=== PATIENT | female | born 1975 | race Two or more races ===

== ENCOUNTER 2022-04-11 17:06 | Inpatient (IN) | payer MEDICAID, OTHER ==
[~2022-04-11] VITALS: Ht 162.6 cm; Wt 86.6 kg
[2022-04-11] MEDS ORDERED: ALBUTEROL SULF 2.5 MG/0.5ML(0.5%) NEB SOLN HHN ONE (17:15)
[2022-04-11] MEDS ORDERED: IPRATROPIUM BROM 0.5 MG/2.5ML INH SOL HHN ONE (17:15)
[2022-04-11] MEDS ORDERED: methylPREDNISolone SOD SUCC 125 MG/2 ML VL IV ONE (17:15)
[2022-04-11 18:44] LABS: Albumin 3.7 g/dL (3.4-5.0); Calcium 9.3 mg/dL (8.5-10.1); Potassium 3.1 mmol/L (3.5-5.1)
[2022-04-11 18:47] LABS: BUN/Creatinine Ratio 21.6; Bilirubin, Total 0.5 mg/dL (0.2-1.0); CRP High Sensitivity 0.19 mg/dL (< 0.3); Total Protein 7.3 g/dL (6.4-8.2)
[2022-04-11 18:48] LABS: Eosinophils # (auto) 0.2 10 ^3/uL (0-0.8); Hemoglobin 13.4 g/dL (12.2-16.2); Nucleated Red Blood Cells % 0.1 %
[2022-04-11 18:59] LABS: Basophils # (auto) 0.1 10 ^3/uL (0-0.2); Basophils % (auto) 0.9 % (0.0-2.0); Eosinophils % (auto) 2.1 % (0.0-7.0); Hematocrit 41.4 % (36.0-46.0); Lymphocytes # (auto) 2.4 10 ^3/uL (0.4-5.4); Lymphocytes % (auto) 31.3 % (10.0-50.0); Mean Corpuscular Hemoglobin 28.5 pg (28.0-32.0); Mean Corpuscular Hgb Conc. 32.4 g/dL (32.0-36.0); Mean Corpuscular Volume 87.8 fL (80.0-100.0); Monocytes # (auto) 0.4 10 ^3/uL (0-1.3); Monocytes % (auto) 5.3 % (0.0-12.0); Neutrophils # (auto) 4.6 10 ^3/uL (1.6-8.6); Neutrophils % (auto) 60.4 % (37.0-80.0); Red Blood Cells 4.71 10^6/uL (4.0-5.20); Red Cell Distribution Width 14.1 % (11.8-14.3); White Blood Cell 7.5 10^3/uL (4.4-10.8)
[2022-04-11] MEDS ORDERED: POTASSIUM CHL 20MEQ/100ML 100 ML IV ONE (19:45)
[2022-04-11 23:02] LABS: Urine Bacteria FEW /hpf (None Seen); Urine Blood Negative /uL (Negative); Urine Mucus FEW (None Seen); Urine Specific Gravity 1.027 (1.001-1.035); Urine WBC 3 /hpf (0 - 5)
[2022-04-12] MEDS ORDERED: ACETAMINOPHEN 325 MG TAB PO PRN (02:30)
[2022-04-12] MEDS ORDERED: NITROGLYCERIN 0.4 MG SL TAB SL PRN (02:30)
[2022-04-12] MEDS ORDERED: TEMAZEPAM 15 MG CAP PO PRN (02:30)
[2022-04-12] MEDS ORDERED: POTASSIUM CHL 20 Meq TABLET PO ONE (02:30)
[2022-04-12] MEDS ORDERED: ALBUTEROL SULF 2.5 MG/0.5ML(0.5%) NEB SOLN NEB PRN (02:30)
[2022-04-12] MEDS ORDERED: MORPHINE SULFATE INJ 2 MG/ml SYRG IV PRN (02:30)
[2022-04-12 02:59] VITALS: BP 97/67
[2022-04-12] MEDS: ENOXAPARIN SOD 40 MG/0.4 ML SYRINGE SC SCH (09:58)
[2022-04-12] MEDS: cefTRIAXone 1GM/50ML D5W 50 ML IV SCH (09:58)
[2022-04-12] MEDS: MULTIPLE VITAMIN TAB PO SCH (09:59)
[2022-04-12] MEDS: PANTOPRAZOLE 40 MG TAB PO SCH (09:59)
[2022-04-12] MEDS ORDERED: ZINC SULFATE 220mg CAP or TAB PO SCH (10:00)
[2022-04-12] MEDS ORDERED: ASCORBIC ACID 500 MG TAB PO SCH (10:00)
[2022-04-12 15:51] VITALS: BP 118/68
[2022-04-12 17:00] VITALS: BP 109/63
[2022-04-12] MEDS: ONDANSETRON HCL 4 MG/2 ML VIAL IV PRN ×2 (17:43→21:15)
[2022-04-12 22:00] VITALS: BP 97/60
[2022-04-13 05:00] VITALS: BP 102/67
[2022-04-13 07:00] LABS: Basophils # (auto) 0 10 ^3/uL (0-0.2); Basophils % (auto) 0.3 % (0.0-2.0); Eosinophils # (auto) 0.1 10 ^3/uL (0-0.8); Eosinophils % (auto) 0.9 % (0.0-7.0); Hematocrit 38.1 % (36.0-46.0); Hemoglobin 12.5 g/dL (12.2-16.2); Lymphocytes # (auto) 2.4 10 ^3/uL (0.4-5.4); Lymphocytes % (auto) 24.3 % (10.0-50.0); Mean Corpuscular Hemoglobin 28.7 pg (28.0-32.0); Mean Corpuscular Hgb Conc. 32.8 g/dL (32.0-36.0); Mean Corpuscular Volume 87.5 fL (80.0-100.0); Monocytes # (auto) 0.6 10 ^3/uL (0-1.3); Monocytes % (auto) 5.6 % (0.0-12.0); Neutrophils # (auto) 6.9 10 ^3/uL (1.6-8.6); Neutrophils % (auto) 68.9 % (37.0-80.0); Nucleated Red Blood Cells % 0.1 %; Red Blood Cells 4.36 10^6/uL (4.0-5.20)
[2022-04-13 07:13] LABS: BUN/Creatinine Ratio 21.8; CRP High Sensitivity 0.16 mg/dL (< 0.3); Calcium 8.5 mg/dL (8.5-10.1); Potassium 3.7 mmol/L (3.5-5.1)
[2022-04-13] MEDS: ENOXAPARIN SOD 40 MG/0.4 ML SYRINGE SC SCH (08:40)
[2022-04-13] MEDS: cefTRIAXone 1GM/50ML D5W 50 ML IV SCH (08:40)
[2022-04-13] MEDS: MULTIPLE VITAMIN TAB PO SCH (08:40)
[2022-04-13] MEDS: PANTOPRAZOLE 40 MG TAB PO SCH (08:40)
[2022-04-13 09:03] VITALS: BP 98/61
[2022-04-13] MEDS ORDERED: ADENOSINE IV ONE (09:15)
[2022-04-13] MEDS ORDERED: GIVE UN DILUTED IV ONE (09:15)
[2022-04-13] MEDS ORDERED: ADENOSINE 72 MG in GIVE UN-DILUTED 0 ML IV ONE ×2 (09:15→12:00)
[2022-04-13 11:40] LABS: Amylase 49 U/L (25-115); Lipase 83 U/L (73-393)
[2022-04-13 12:48] VITALS: BP 98/63
[2022-04-13 13:56] LABS: Cholesterol 114 mg/dL (< 200); HDL Cholesterol 49 mg/dL (40-59); LDL Cholesterol 64 mg/dL (< 100); Triglycerides 114 mg/dL (< 150)
[2022-04-13 16:44] VITALS: BP 95/61
[2022-04-13 22:00] VITALS: BP 106/60
[2022-04-14] VITALS (9 sets, daily range): BP systolic 89–113; BP diastolic 51–78
[2022-04-14] MEDS ORDERED: DOCUSATE SOD 100 MG CAP PO PRN (08:30)
[2022-04-14] MEDS ORDERED: PROMETHAZINE HCL 25 MG/ML 1ML IV ONE (08:30)
[2022-04-14] MEDS ORDERED: DOCUSATE SOD 100 MG CAP PO ONE (08:30)
[2022-04-14] MEDS: cefTRIAXone 1GM/50ML D5W 50 ML IV SCH (09:00)
[2022-04-14] MEDS ORDERED: IODIXANOL 320MG/ML 100ML BTL IV ONE (09:20)
[2022-04-14] MEDS ORDERED: LIDOCAINE 2%HCL (LOCAL ANESTH.) INJ 10ml MDV ONE (09:20)
[2022-04-14] MEDS ORDERED: ANGIOMAX 250 MG VIAL IV ONE (09:21)
[2022-04-14] MEDS ORDERED: fentaNYL CITRATE 100 MCG/2 ML VL ONE (09:21)
[2022-04-14] MEDS ORDERED: SODIUM CHL 0.9% 0 ML ONE (09:22)
[2022-04-14] MEDS ORDERED: MIDAZOLAM HCL 2MG/2ML 2ml VIAL (1mg/ml) ONE ×2 (09:22→10:10)
[2022-04-14] MEDS ORDERED: VERAPAMIL 2.5MG/ML INJ 2ML VIAL IV ONE ×2 (09:22→10:06)
[2022-04-14] MEDS ORDERED: HEPARIN SODIUM (PORCINE) 5000 UNITS/ML 1ML VIAL ONE (09:22)
[2022-04-14] MEDS: ENOXAPARIN SOD 40 MG/0.4 ML SYRINGE SC SCH (10:00)
[2022-04-14] MEDS: MULTIPLE VITAMIN TAB PO SCH (10:00)
[2022-04-14] MEDS ORDERED: ATROPINE SULF 1 MG/10ml SYR ONE (10:00)
[2022-04-14] MEDS: PANTOPRAZOLE 40 MG TAB PO SCH (10:00)
[2022-04-14 12:28] LABS: Basophils # (auto) 0.1 10 ^3/uL (0-0.2); Basophils % (auto) 0.8 % (0.0-2.0); Eosinophils # (auto) 0.2 10 ^3/uL (0-0.8); Eosinophils % (auto) 2.2 % (0.0-7.0); Hematocrit 39.2 % (36.0-46.0); Hemoglobin 12.6 g/dL (12.2-16.2); Lymphocytes # (auto) 1.6 10 ^3/uL (0.4-5.4); Mean Corpuscular Hemoglobin 28.4 pg (28.0-32.0); Mean Corpuscular Hgb Conc. 32.2 g/dL (32.0-36.0); Mean Corpuscular Volume 88.4 fL (80.0-100.0); Monocytes # (auto) 0.4 10 ^3/uL (0-1.3); Monocytes % (auto) 5.4 % (0.0-12.0); Neutrophils # (auto) 5.9 10 ^3/uL (1.6-8.6); Neutrophils % (auto) 71.6 % (37.0-80.0); Red Blood Cells 4.44 10^6/uL (4.0-5.20); Red Cell Distribution Width 13.9 % (11.8-14.3); White Blood Cell 8.2 10^3/uL (4.4-10.8)
[2022-04-14 12:39] LABS: INR 0.97 (0.9-1.15); Partial Thromboplastin Time 34.5 sec (24.6-33.4)
[2022-04-14 12:40] LABS: BUN/Creatinine Ratio 27.5; Calcium 8.3 mg/dL (8.5-10.1); Potassium 3.7 mmol/L (3.5-5.1)
[2022-04-15] VITALS: BP 98/63
[2022-04-15 03:12] VITALS: BP 96/63
[2022-04-15 05:00] VITALS: BP 97/69
[2022-04-15 06:08] LABS: Albumin 3.3 g/dL (3.4-5.0); Calcium 8.7 mg/dL (8.5-10.1)
[2022-04-15 06:11] LABS: Bilirubin, Total 0.4 mg/dL (0.2-1.0); Total Protein 6.5 g/dL (6.4-8.2)
[2022-04-15 09:13] VITALS: BP 94/61
[2022-04-15] MEDS: PANTOPRAZOLE 40 MG TAB PO SCH (09:34)
[2022-04-15] MEDS: MULTIPLE VITAMIN TAB PO SCH (09:34)
[2022-04-15] MEDS: cefTRIAXone 1GM/50ML D5W 50 ML IV SCH (12:02)
[2022-04-15 12:55] VITALS: BP 100/61
[2022-04-17 10:15] LABS: Hepatitis B Surface Antibody Negative (Negative)
[2022-04-17 10:46] LABS: Hepatitis A Total Antibody Positive (Negative)
[2022-04-17 13:33] LABS: Hepatitis C Antibody Negative (Negative)
== END 2022-04-15 16:40 | disposition home or self-care (01) | DRG 287 ==
LOC: EDBD 17:06 → ER 17:06 → TELE 04-12 02:30 → TELE-WESTW 04-12 14:51
PROVIDERS: ADMIT Nurse Practitioner; ATTEND Internal Medicine Nephrology
PROC: 4A023N7 Measurement of Cardiac Sampling and Pressure, Left Heart, Percutaneous Approach (ICD-10-PCS; principal; 2022-04-14)
PROC: B211YZZ Fluoroscopy of Multiple Coronary Arteries using Other Contrast (ICD-10-PCS; 2022-04-14)
PROC: B215YZZ Fluoroscopy of Left Heart using Other Contrast (ICD-10-PCS; 2022-04-14)
DX: R07.89 Other chest pain (principal); N39.0 Urinary tract infection, site not specified; J45.901 Unspecified asthma with (acute) exacerbation; E87.6 Hypokalemia; R06.03 Acute respiratory distress; E66.9 Obesity, unspecified; R19.7 Diarrhea, unspecified; Z20.822 Contact with and (suspected) exposure to COVID-19; R74.01 Elevation of levels of liver transaminase levels; K76.0 Fatty (change of) liver, not elsewhere classified; K75.9 Inflammatory liver disease, unspecified; Z82.49 Family history of ischemic heart disease and other diseases of the circulatory system; Z68.33 Body mass index [BMI] 33.0-33.9, adult
CPT/HCPCS: 36415; 71045; 76705; 78226; 78452; 80048; 80053; 80061; 81001; 82150; 82728; 83036; 83516; 83605; 83690; 83880; 84484; 84702; 85025; 85379; 85610; 85652; 85730; 86141; 86225; 86235; 86704; 86706; 86708; 86803; 87040; 87086; 87340; 93017; 93306; 94640; 96361; 96374; 99152; 99153; G0378; J0153; J0696; J2001; J2250; J2405; J3480; Q9967

== ENCOUNTER 2023-02-25 13:40 | Emergency (ER) | payer SELFPAY ==
[~2023-02-25] VITALS: Ht 160 cm; Wt 86.3 kg
[2023-02-25 16:42] VITALS: BP 119/91
== END 2023-02-25 15:30 | disposition left against medical advice (07) ==
LOC: EDBD 13:40 → ER 13:40
DX: M54.89 Other dorsalgia (principal); Z53.21 Procedure and treatment not carried out due to patient leaving prior to being seen by health care provider

== ENCOUNTER 2023-05-23 16:22 | Emergency (ER) | payer SELFPAY ==
[~2023-05-23] VITALS: Ht 157.5 cm; Wt 86.4 kg
[2023-05-23 16:32] VITALS: BP 113/64; RESP 18; O2SAT 97
[2023-05-23 17:06] LABS: Basophils # (auto) 0 10 ^3/uL (0-0.2); Basophils % (auto) 0.4 % (0.0-2.0); Eosinophils # (auto) 0.1 10 ^3/uL (0-0.8); Eosinophils % (auto) 1.3 % (0.0-7.0); Hematocrit 40.8 % (36.0-46.0); Hemoglobin 13.7 g/dL (12.2-16.2); Lymphocytes # (auto) 1.7 10 ^3/uL (0.4-5.4); Mean Corpuscular Hemoglobin 29.2 pg (28.0-32.0); Mean Corpuscular Hgb Conc. 33.7 g/dL (32.0-36.0); Mean Corpuscular Volume 86.8 fL (80.0-100.0); Monocytes # (auto) 0.3 10 ^3/uL (0-1.3); Monocytes % (auto) 4.3 % (0.0-12.0); Neutrophils # (auto) 5.4 10 ^3/uL (1.6-8.6); Red Cell Distribution Width 14.2 % (11.8-14.3); White Blood Cell 7.6 10^3/uL (4.4-10.8)
[2023-05-23 17:18] LABS: Urine Bacteria FEW /hpf (None Seen); Urine Blood TRACE /uL (Negative); Urine Clarity HAZY (Clear); Urine Color Yellow (Yellow); Urine Mucus FEW (None Seen); Urine Protein, UAD Negative (Negative); Urine Urobilinogen Normal (Negative); Urine WBC 7 /hpf (0 - 5)
[2023-05-23 17:30] LABS: Alanine Aminotransferase 80 U/L (7-40); Alkaline Phosphatase 89 U/L (46-116); Anion Gap 7 (5-15); Aspartate Aminotransferase 44 U/L (13-40); BUN/Creatinine Ratio 16.7 (10.0-20.0); Blood Urea Nitrogen 11 mg/dL (9-23); Calcium 9.4 mg/dL (8.5-10.1); Carbon Dioxide 25 mmol/L (20-30); Chloride 109 mmol/L (98-107); Glucose 168 mg/dL (74-106); Potassium 3.9 mmol/L (3.5-5.1); Sodium 141 mmol/L (136-145)
[2023-05-23 17:31] LABS: Albumin 4.2 g/dL (3.2-4.8); Bilirubin, Total 0.6 mg/dL (0.2-1.0); Total Protein 6.8 g/dL (5.7-8.2)
[2023-05-23] MEDS ORDERED: MECL25CH85 PO (20:53)
[2023-05-23] MEDS ORDERED: IBUP1TAB5 PO (20:53)
[2023-05-23] MEDS ORDERED: ZOFR4T PO (20:53)
[2023-05-23] MEDS ORDERED: NITR-87 PO (20:56)
[2023-05-23 20:59] VITALS: PULSE 112
[2023-05-23] MEDS ORDERED: SODIUM CHLORIDE 0.9% 1,000 ML IV ONE (21:00)
[2023-05-23] MEDS ORDERED: ONDANSETRON ODT 4 MG TAB PO ONE (21:00)
[2023-05-23] MEDS ORDERED: MECLIZINE HCL 25 MG TAB PO ONE (21:00)
[2023-05-23] MEDS ORDERED: HYDROcodone-ACET 5/325MG TAB PO ONE (21:00)
== END 2023-05-23 22:49 | disposition home or self-care (01) ==
LOC: ER 16:22
DX: N39.0 Urinary tract infection, site not specified (principal); R42 Dizziness and giddiness; R51.9 Headache, unspecified
CPT/HCPCS: 36415; 70450; 80053; 81001; 84484; 85025